=== PATIENT | male | born 1975 | race Caucasian/White ===

== ENCOUNTER → 2020-05-25 08:55 | Outpatient (BNVA) | payer OTHER, SELFPAY | PROVIDERS: Visit Provider Family Medicine | DX: Z13.6 Encounter for screening for cardiovascular disorders (principal); Z12.5 Encounter for screening for malignant neoplasm of prostate | CPT/HCPCS: 80053; 80061; 85025; G0103 ==

== ENCOUNTER 2020-06-01 06:01 | Day surgery (SDC) | payer OTHER, SELFPAY ==
[2020-05-31 10:54] VITALS: BMI 27.6
[2020-06-01 06:13] VITALS: BP 124/84; PULSE 70; RESP 16; TEMP 36.2; O2SAT 97
[2020-06-01] MEDS: sodium chloride 0.9% 1,000 ML 30 ML IV (06:35)
--- NOTE | 2020-06-01 06:43 | ANES.PREANE2 ---
Pre-Anesthetic Assessment Pre-Anesthetic Assessment: Height/Weight: Height 1.78 m Weight 87.543 kg Temp Pulse Resp BP Pulse Ox 97.1 F L 70 16 124/84 97 06/01/20 06:13 06/01/20 06:13 06/01/20 06:13 06/01/20 06:13 06/01/20 06:13 Preop Diagnosis: Excision of mass right flank Proposed Procedure: Operation Date: 06/01/20 07:00 Proposed Procedures p Excision of Subcutaneous mass Flank 02337 R22.9(Right) - Fito Elizondo MD Last intake: Intake Last Liquid Date 05/31/20 Last Liquid Time 23:00 Last Solid Date 05/31/20 Last Solid Time 19:00 Social: Social History: No alcohol and No tobacco Exam: Pre-Anes Outpt Exam: alert, oriented x 3, clear to auscultation bilaterally and regular rate & rhythm Airway: Submandibular: WNL Cervical ROM: WNL MP: 2 Dentition: Other (teeth ok) History/ROS: No significant complaints Anesthetic Plan: ASA status: 1 Anesthesia: Anesthesia Evaluation and MAC Risk of > 500 ml blood loss (7ml/kg in children): No Meds/Allergies Current Medications: Current Medications Generic Name Dose Route Start Last Admin Trade Name Freq PRN Reason Stop Dose Admin Sodium Chloride 1,000 mls @ 30 ml s/hr 06/01/20 06:15 06/01/20 06:35 Sodium Chloride 0.9% IV 06/02/20 06:14 30 mls/hr .Q24H MELVIN Administration PFSH Anesthesia PFSH: Medical History No pertinent past medical history Surgical History No pertinent past surgical history Family History Grandfather No problems noted. Grandmother Cancer breast Other CAD (coronary artery disease) Denies family history of Diabetes Anesthesia complication Bleeding disorder Social History Smoking and tobacco status: never smoked Alcohol intake: never Household members: spouse Marital status: Current occupational status: employed History of recent travel: No Data Anesthesia Cardiac Studies: No Data to Display
--- NOTE | 2020-06-01 06:46 | W.PM.OPSUD ---
Surgery/Procedure H&P Update DATE OF PROCEDURE: June 01, 2020 DATE H&P PERFORMED: 05/30/20 H&P UPDATE INFORMATION: I have reviewed H&P completed within last 30 days, I have examined patient prior to procedure and No changes to prior documentation PREOP DIAGNOSIS: Excision of mass right flank PLANNED PROCEDURE: Operation Date: 06/01/20 07:00 Proposed Procedures p Excision of Subcutaneous mass Flank [id number] R22.9(Right) - Fito Elizondo MD
[2020-06-01] MEDS: lidocaine 1% INJ 20 mL SUBCUT (07:27)
[2020-06-01 07:34] VITALS: BP 112/73; PULSE 76; RESP 16; TEMP 36.4; O2SAT 98
[2020-06-01 07:49] VITALS: BP 126/70; PULSE 75; RESP 15; TEMP 36.6; O2SAT 98
--- NOTE | 2020-06-01 07:55 | PM.OP ---
Operative Report Date of procedure: June 01, 2020 Pre-op Diagnosis: Excision of mass right flank Post-op diagnosis: same Post-op Findings: 8 x 5 cm x 2 cm mass right flank Procedure Done: Excision of subcutaneous mass right flank Specimens removed/disposition: Mass right flank Surgeon: Fito Elizondo Estimated blood loss (mL): 5 Condition: stable Disposition: PACU Procedure: The patient was taken to the operating room and placed in the right lateral position under MAC after IV antibiotic had been administered. 1% lidocaine with 0.5% Marcaine was infiltrated around the palpable mass. A 4 cm transverse incision was made using 15 blade, subcutaneous tissue was divided using electrocautery and the lipoma was dissected free from the surrounding subcutaneous tissue and underlying serratus muscle fascia. The wound was irrigated saline, hemostasis ensured and subcutaneous tissues approximated using interrupted 3-0 Vicryl suture and skin was closed using running subcuticular 4-0 Monocryl suture and surgical glue. The patient was transferred to recovery room in stable condition.
== END 2020-06-01 08:10 | disposition home or self-care (01) ==
PROVIDERS: PCP Family Medicine; Visit Provider Surgery
PROC: (CPT 11406; principal; 2020-06-01 07:00)
DX: D17.1 Benign lipomatous neoplasm of skin and subcutaneous tissue of trunk (principal)
CPT/HCPCS: 11406; 12034; 12345; 88304; J0690; J2250; J2704; J3010; J3490; J7030